=== PATIENT | female | born 1970 | race Caucasian/White ===

== ENCOUNTER 2020-06-23 08:44 | Emergency (ER) | payer MEDICAID ==
[~2020-06-23] VITALS: Ht 160 cm; Wt 97.5 kg
[~2020-06-23 08:44] MED LIST: ALBU18HF; TRAM50TA2 PO
--- NOTE | 2020-06-23 09:00 | NUR ---
PATIENT WHEELED BACK FROM TRIAGE WITH CHIEF C/O BACK PAIN. PER PATIENT HER "12 YEAR OLD GRANDSON WAS WALKING ON MY BACK LAST NIGHT AND I HEARD A POP." PATIENT HAS BEEN HAVING INCREASED PAIN ON THE LEFT SIDE OF HER BACK. PATIENT REPORTS HEADACHE, DENIES NECK PAIN. DESMOND CASANOVA, CALL LIGHT WITHIN REACH.
--- NOTE | 2020-06-23 09:06 | NUR ---
ERPA AT BEDSIDE FOR EVALUATION.
[2020-06-23] MEDS ORDERED: KETOROLAC 30 MG/1 ML ONE (09:13)
[2020-06-23] MEDS ORDERED: HYDROcodone/APAP 5/325 TABLET ONE (09:14)
--- NOTE | 2020-06-23 09:28 | NUR ---
PATIENT MEDICATED PER eMAR.
[2020-06-23] MEDS ORDERED: KETOROLAC 30 MG/1 ML IM ONE (09:30)
[2020-06-23] MEDS ORDERED: HYDROcodone/APAP 5/325 TABLET PO ONE (09:30)
--- NOTE | 2020-06-23 09:32 | NUR ---
ERPA AT BEDSIDE TO DISCUSS IMAGING RESULTS AND POC.
[2020-06-23 09:54] VITALS: BP 121/80
--- NOTE | 2020-06-23 09:57 | NUR ---
Patient given discharge instructions and prescription and they have confirmed that they understand the instructions. Patient stable and ambulatory with steady gait from ED.
== END 2020-06-23 09:58 | disposition home or self-care (01) ==
LOC: ED 09:50
DX: S22.42XA Multiple fractures of ribs, left side, initial encounter for closed fracture (principal); R07.89 Other chest pain; W50.0XXA Accidental hit or strike by another person, initial encounter; Y93.89 Activity, other specified; Y92.89 Other specified places as the place of occurrence of the external cause; Y99.8 Other external cause status
CPT/HCPCS: 71101; 93005; 96372; 99283; J1885

== ENCOUNTER 2020-10-06 05:21 | Emergency (ER) | payer MEDICAID ==
[~2020-10-06] VITALS: Ht 160 cm; Wt 94.5 kg
--- NOTE | 2020-10-06 05:33 | NUR ---
PT C/O COUGH,FEVERS/CHILLS, CRAMPING IN STOMACH, BODY ACHES, HEADACHE, LOSS OF TASTE AND SMELL, NAUSEA, AND DIARRHEA. DENIES CP. AATACHED TO CARD/SP02/BP MONITORS. VSS. NADN. BED IN LOW POSITION, RAILS ENGAGED, CALL LIGHT ON LAP. PT AMBULATED TO ROOM AND CHANGED INTO GOWN.
--- NOTE | 2020-10-06 05:39 | NUR ---
PT HAS RED, FUNGAL RASH AROUND UMBILICAL AREA. MD AT BEDSIDE FOR EVAL.
[2020-10-06] MEDS ORDERED: ACETAMINOPHEN 500 MG TABLET ONE (05:56)
--- NOTE | 2020-10-06 05:59 | NUR ---
RESP ISOLATION PUT INTO PLACE. CART OUTSIDE ROOM AND ISOLATOIN SHEET BY DOOR IN FRAME.
[2020-10-06] MEDS ORDERED: SODIUM CHLORIDE FLUSH 10ML SYR IVF ONE (06:00)
[2020-10-06] MEDS ORDERED: ACETAMINOPHEN 500 MG TABLET PO ONE (06:00)
[2020-10-06] MEDS ORDERED: KETOROLAC 30 MG/1 ML IVPush ONE (06:00)
[2020-10-06] MEDS ORDERED: METOCLOPRAMIDE 5 MG/ML, 2ML IVPush ONE (06:00)
[2020-10-06] MEDS ORDERED: DIPHENHYDRAMINE 50 MG/ML, 1ML IVPush ONE (06:00)
[2020-10-06 06:40] VITALS: BP 128/80
--- NOTE | 2020-10-06 06:54 | NUR ---
GAVE REPORT TO BETO WILLIAM
--- NOTE | 2020-10-06 07:00 | NUR ---
REPORT FROM LITZY, ASSUME CARE OF PT AT THIS TIME.
--- NOTE | 2020-10-06 07:10 | NUR ---
ALL RESULTS BACK, PT FOR RECHECK.
== END 2020-10-06 07:41 | disposition home or self-care (01) ==
LOC: ED 06:12
DX: U07.1 COVID-19 (principal); J18.9 Pneumonia, unspecified organism; B34.9 Viral infection, unspecified; R51.9 Headache, unspecified; R06.00 Dyspnea, unspecified; F17.200 Nicotine dependence, unspecified, uncomplicated
CPT/HCPCS: 71045; 99284; U0003; U0005